=== PATIENT | male | born 1955 | race Caucasian/White ===

== ENCOUNTER 2019-07-04 20:42 | Emergency (ER) | payer SELFPAY ==
[2019-07-04 20:45] VITALS: BP 140/78; PULSE 103; RESP 18; TEMP 36.9; O2SAT 99
[2019-07-04 21:40] LABS: RBC Urine None Seen (0-5/HPF)
[2019-07-04 21:48] LABS: Bacteria Urine Moderate (10-30); Squamous Epithelial Cell Urine 0-1 /HPF (0-5/HPF); WBC Urine >100/HPF (0-5/HPF)
[2019-07-04 21:49] LABS: Culture Indicated Urine Specimen Cultured
--- NOTE | 2019-07-04 22:32 | ED_ITS ---
HPI - Male Genitourinary General Chief complaint: Urogenital-Male Stated complaint: thinks has a virus or something Time Seen by Provider: 07/04/19 23:47 Source: patient Mode of arrival: Ambulatory Limitations: no limitations History of Present Illness HPI Narrative: 63-year-old male comes to the emergency department with concern for infection in his urine. Patient states he is having frequency and dysuria. He did note some discharge which he states is sort of creamy. He states that no fevers. No abdominal pain, no flank pain, no nausea, vomiting, no diarrhea, constipation. Patient denies any other medical issues. Patient denies any surgeries. No allergies to medications. Patient states he had a bladder infection about a year ago and states he got antibiotics. He states he is sexually active. Related Data Previous Rx's Medication Instructions Recorded ciprofloxacin HCl 500 mg PO BID #14 tab 07/05/19 Allergies Allergy/AdvReac Type Severity Reaction Status Date / Time No Known Drug Allergies Allergy Verified 07/04/19 20:50 Review of Systems Review of Systems ROS Unobtainable: All systems reviewed & are unremarkable except as noted in HPI and below Patient History Social History Smoking Status: Never smoker Smoking Status: Never smoker alcohol intake frequency: 0-2 drinks per day Substance Use Type: does not use Exam Narrative Exam Narrative: GENERAL: Alert and oriented x three, well-nourished, well- appearing male in mild distress HEENT: Head normocephalic, atraumatic, EOMI, pupils reactive, face symmetric, moist mucous membranes NECK: Supple, full range of motion CARDIOVASCULAR: Regular rate and rhythm without murmurs, rubs or gallops. RESPIRATORY: Breath sounds equal bilaterally, no wheezes rales or rhonchi. ABDOMEN: Soft, nontender. Normoactive bowel sounds all 4 quadrants. No guarding or rebound, rigidity, no mass : No CVA tenderness EXTREMITIES: Normal range of motion, no clubbing or edema. Neurovascularly intact NEUROLOGICAL: Cranial nerves II through XII grossly intact. Moving all extremities SKIN: Warm, dry, no petechiae, no rashes or lesions. Initial Vital Signs Initial Vital Signs: Vital Signs Temperature 98.4 F 07/04/19 20:45 Pulse Rate 103 H 07/04/19 20:45 Respiratory Rate 18 07/04/19 20:45 Blood Pressure 140/78 07/04/19 20:45 Pulse Oximetry 99 07/04/19 20:45 Course Orders Ordered: ED Orders 07/05/19 00:07 Chlamydia Gonorrhea PCR -URINE Stat Discontinued Medications Ciprofloxacin (Cipro) 500 mg PO NOW ONE Stop: 07/05/19 02:07 Last Admin: 07/05/19 02:40 Dose: 500 mg [facility] Vital Signs Vital signs: Vital Signs - 8 hr 07/05/19 01:10 07/05/19 02:56 Temperature 98.2 F Pulse Rate 59 L 61 Respiratory Rate 18 14 Blood Pressure 122/74 Blood Pressure [Left Wrist] 122/75 Pulse Oximetry 98 99 MDM - Male Genitourinary Lab Data Attestation: I reviewed the patient's lab results. Labs: Lab Results 07/04/19 07/04/19 Range/Units 00:07 21:38 Urine RBC None seen (0-5/HPF) Urine WBC >100/hpf H (0-5/HPF) Ur Squamous Epith Cells 0-1 /hpf (0-5/HPF) Urine Bacteria Moderate (10-30) H (None) Ur Culture Indicated? Specimen cultured Ur Chlamydia DNA (PCR) Not detected N gonorrhoeae DNA (PCR) Not detected Urine Dip Bedside Urine Glucose Negative Bedside Urine Bilirubin - Negative Bedside Urine Ketone - Negative Urine Specific [place] 1.015 Bedside Urine Occult Blood - Negative Bedside Urine pH 8.0 Bedside Urine Protein + 30 Bedside Urine Urobilinogen +/- 1mg Bedside Urine Nitrite - Negative Bedside Urine Leukocytes ++ 125 Esterase MDM Narrative Medical decision making narrative: Urine GC is negative. Urine shows leuks with UTI type symptoms. Patient was started on Cipro b.i.d. and given 1st dose here. Patient does not show any signs of sepsis and lab work was deferred. Discharge Plan Departure Patient Disposition: Home Clinical Impression: Urinary tract infection Qualifiers: Urinary tract infection type: acute cystitis Discharge Date/Time: 07/05/19 02:59 Instructions: DI for Urinary Tract Infection (UTI) Activity Restrictions/Additional Instructions: Follow-up with primary care in the next week for recheck if you are not having resolution of your symptoms. Take antibiotics once daily until gone. Return to the ER for fevers greater 100.4 F, new or worsening abdominal pain, back or flank pain, persistent vomiting, inability to urinate, lightheadedness, testicular pain, passing out, black or bloody stools or other new or concerning symptoms. Prescriptions: New ciprofloxacin HCl 500 mg tablet 500 mg PO BID Qty: 14 RF: 0
[2019-07-05 01:10] VITALS: BP 122/75; PULSE 59; RESP 18; TEMP 36.8; O2SAT 98
[2019-07-05 01:32] LABS: Urine Chlamydia NOT DETECTED; Urine N gonorrhoeae NOT DETECTED
[2019-07-05] MEDS: CIPROFLOXACIN 500 MG TABLET PO (02:40)
[2019-07-05 02:56] VITALS: BP 122/74; PULSE 61; RESP 14; O2SAT 99
== END 2019-07-05 02:59 | disposition home or self-care (01) ==
PROVIDERS: Emergency Provider Emergency Medicine
DX: N30.00 Acute cystitis without hematuria (principal)
CPT/HCPCS: 81003; 81015; 87086; 87491; 87591; 99283

== ENCOUNTER → 2023-01-12 15:11 | Outpatient (CLI) | payer SELFPAY | PROVIDERS: Visit Provider Nurse Practitioner Family | DX: R35.0 Frequency of micturition (principal) | CPT/HCPCS: 87077; 87086; 87186 ==

== ENCOUNTER 2023-04-18 14:30 | Emergency (ER) | payer SELFPAY ==
[2023-04-18 14:57] VITALS: BP 169/79; PULSE 70; RESP 16; TEMP 36.9; O2SAT 99; BMI 21.5
--- NOTE | 2023-04-18 15:39 | ED_ITS ---
HPI - Wound/Laceration <Tato Garrido PA-C - Last Filed: 04/18/23 16:25> General Chief Complaint: Wound/Laceration Stated Complaint: lt finger infection Time Seen by Provider: 04/18/23 15:38 Source: patient Mode of arrival: Ambulatory History of Present Illness HPI narrative: 67-year-old male presents to the ED for a left 3rd finger infection. Patient states that he had a hangnail, which appears to now be infected. Patient states that his finger became acutely swollen, painful and red over the past 2 days. Patient denies numbness, tingling, weakness. Patient denies fever, chills, nausea, vomiting. Related Data Allergies Allergy/AdvReac Type Severity Reaction Status Date / Time No Known Drug Allergies Allergy Verified 04/18/23 15:02 Review of Systems <Tato Garrido PA-C - Last Filed: 04/18/23 16:25> Constitutional Constitutional: Denies chills, Denies fatigue, Denies fever(s), Denies frequent falls, Denies lethargy and Denies weakness Eyes Eyes: Denies change in vision, Denies eye discharge, Denies irritation and Denies loss of vision ENT Ears, Nose, Mouth, and Throat: Denies change in voice, Denies dizziness, Denies neck pain, Denies sore throat and Denies throat swelling Cardiovascular Cardiovascular: Denies chest pain, Denies irregular heart rhythm, Denies lightheadedness, Denies palpitations, Denies dyspnea, Denies dyspnea on exertion and Denies orthopnea Respiratory Respiratory: Denies cough, Denies dyspnea, Denies dyspnea on exertion and Denies wheezing Gastrointestinal Gastrointestinal: Denies abdominal pain, Denies change in bowel habits, Denies diarrhea, Denies nausea and Denies vomiting Musculoskeletal Musculoskeletal: Denies neck pain and Denies numbness Integumentary/Breasts Skin/Breast: Denies pruritus, Denies erythema, Denies rash and Denies wounds Comments: L 3rd finger swelling, pain, red Neurologic Neurologic: Denies behavioral changes, Denies confusion, Denies dizziness, Denies frequent falls, Denies loss of vision, Denies numbness and Denies weaknes s Psychiatric Psychiatric: Denies anxiety, Denies behavioral changes, Denies confusion, Denies depression, Denies homicidal ideation and Denies suicidal ideation Endocrine Endocrine: Denies fatigue, Denies flushing and Denies palpitations Hematologic/Lymphatic Hematologic/Lymphatic: Denies easy bruising Allergic/Immunologic Allergic/Immunologic: Denies urticaria, Denies throat swelling and Denies whee zing Patient History <Tato Garrido PA-C - Last Filed: 04/18/23 16:25> Social History Smoking Status: Never smoker Smoking Status: Never smoker alcohol intake frequency: 0-2 drinks per day Substance Use Type: does not use Exam <Tato Garrido PA-C - Last Filed: 04/18/23 16:25> Narrative Exam Narrative: Const General:?cooperative, healthy appearing and comfortable HENMT Head:?normal to inspection Ears:?hearing grossly normal bilaterally Nose:?external nose normal Face and sinus:?normal facial exam and sinuses nontender Mouth:?oral mucosae normal Throat:?posterior oropharynx normal Eyes General:?appearance normal, both eyes and all related structures Neck Neck:?normal visual inspection and no lymphadenopathy noted Resp Effort & Inspection:?normal respiratory effort Auscultation:?clear to auscultation bilaterally Cardio Rate:?regular rate Rhythm:?regular rhythm Integumentary Left 3rd finger tip appears swollen, erythematous, tender to palpation, fluctuant with pus. Appearance most consistent with a paronychia. There is full range of motion. Strength and sensation is intact. Patient is neurovascularly intact. Neuro General:?patient alert, patient awake and patient oriented x3 Initial Vital Signs Initial Vital Signs: Vital Signs Temperature 98.4 F 04/18/23 14:57 Pulse Rate 70 04/18/23 14:57 Respiratory Rate 16 04/18/23 14:57 Blood Pressure 169/79 H 04/18/23 14:57 Pulse Oximetry 99 04/18/23 14:57 Oxygen Delivery Method Room Air 04/18/23 14:57 <Sanford Younger DO - Last Filed: 04/18/23 17:13> Initial Vital Signs Initial Vital Signs: Vital Signs Temperature 98.4 F 04/18/23 14:57 Pulse Rate 70 04/18/23 14:57 Respiratory Rate 16 04/18/23 14:57 Blood Pressure 169/79 H 04/18/23 14:57 Pulse Oximetry 99 04/18/23 14:57 Oxygen Delivery Method Room Air 04/18/23 14:57 Procedures <Tato Garrido PA-C - Last Filed: 04/18/23 16:25> Abscess I/D I&D #1: Site: hand Side (if applicable): left Sedation/analgesia: none Local Anesthetic: lidocaine 1% Amount of anesthesia used (mL): 4 Technique: incised with #11 blade Amount of fluid expressed (mL): 1 Packing used?: none Course <Tato Garrido PA-C - Last Filed: 04/18/23 16:25> Orders Ordered: Discontinued Medications Bacitracin (Bacitracin Oint 0.9 Gm Pckt) 1 applic TOP NOW ONE Stop: 04/18/23 16:16 Last Admin: 04/18/23 16:18 Dose: 1 applic Documented By: KERVIN Lidocaine HCl (Lidocaine 1% (Pf) 5 Ml) 5 ml INJ NOW ONE Stop: 04/18/23 15:45 Last Admin: 04/18/23 15:50 Dose: 5 ml Documented By: KERVIN Vital Signs Vital signs: Vital Signs - 8 hr 04/18/23 14:57 04/18/23 16:29 Temperature 98.4 F Pulse Rate 70 60 Respiratory Rate 16 Blood Pressure 169/79 H 121/63 Pulse Oximetry 99 100 Oxygen Delivery Method Room Air Room Air <Sanford Younger DO - Last Filed: 04/18/23 17:13> Orders Ordered: Discontinued Medications Bacitracin (Bacitracin Oint 0.9 Gm Pckt) 1 applic TOP NOW ONE Stop: 04/18/23 16:16 Last Admin: 04/18/23 16:18 Dose: 1 applic Documented By: KERVIN Lidocaine HCl (Lidocaine 1% (Pf) 5 Ml) 5 ml INJ NOW ONE Stop: 04/18/23 15:45 Last Admin: 04/18/23 15:50 Dose: 5 ml Documented By: BS Vital Signs Vital signs: Vital Signs - 8 hr 04/18/23 14:57 04/18/23 16:29 Temperature 98.4 F Pulse Rate 70 60 Respiratory Rate 16 Blood Pressure 169/79 H 121/63 Pulse Oximetry 99 100 Oxygen Delivery Method Room Air Room Air MDM - Wound/Laceration <Tato Garrido PA-C - Last Filed: 04/18/23 16:25> MDM Narrative Medical decision making narrative: 67-year-old male presents to the ED for a left 3rd finger infection. Physical exam is most consistent with a paronychia from a hang nail. Paronychia was incised and drained. Bacitracin was applied and finger was bandaged. Recommend continued use of a triple antibiotic 3 times a day. Wound care and signs of worsening infection discussed with patient. ED return precautions discussed with patient. Patient verbalized understanding. Medical records reviewed: Yes Discharge Plan Departure Patient Disposition: Home Clinical Impression: Paronychia Instructions: DI for Paronychia Activity Restrictions/Additional Instructions: You were evaluated in the ED today for a finger infection. The infection was incised and drained, antibiotic applied and bandaged. Please continue to keep the finger clean and dry. Please apply a triple antibiotic ointment such as Neosporin that you can buy at the drug store 3 times a day and keep the injury bandaged. Do not keep her dressings on for any length of time. Return to the ED if you note signs of worsening infection such as worsening redness, pus, warmth, pain, swelling. Please follow-up with your PCP as soon as possible. Referrals: Miscellaneous,Doctor, MD [Primary Care Provider] - Stand Alone Forms: Patient Portal/API ED Sign-out <Sanford Younger DO - Last Filed: 04/18/23 17:13> Cosign ED Attending Coslorenzoature Attestation: Dr Younger Co-Sign Statement: I was available for consultation during this patient's emergency department visit. This chart is signed by myself for administrative purposes only. I did not have direct contact with this patient during this visit. They were seen independently by the APC.
[2023-04-18] MEDS: LIDOCAINE 1% (PF) 5 ML INJ (15:50)
[2023-04-18] MEDS: BACITRACIN OINT 0.9 GM PCKT 1 APPLIC TOP (16:18)
[2023-04-18 16:29] VITALS: BP 121/63; PULSE 60; O2SAT 100
== END 2023-04-18 16:41 | disposition home or self-care (01) ==
PROVIDERS: Emergency Provider Student in an Organized Health Care Education/Training Program
DX: L03.012 Cellulitis of left finger (principal)
CPT/HCPCS: 10060; 99282; 99283

== ENCOUNTER 2024-12-06 14:01 | Emergency (ER) | payer MEDICARE, SELFPAY ==
[2024-12-06] VITALS (7 sets, daily range): BP systolic 109–148; BP diastolic 59–66; PULSE 64–88; RESP 16; TEMP 36.4–37; O2SAT 95–97; BMI 21.2
--- NOTE | 2024-12-06 14:22 | DI.RAD.S_ITS ---
PROCEDURE: XR CHEST 2V INDICATIONS: productive cough TECHNIQUE: 2 views of the chest were acquired. COMPARISON: None. FINDINGS AND IMPRESSION: Focal mild airspace disease in the left lower lung, confirmed on lateral view at the costophrenic angle. No drainable effusions. Consider future imaging surveillance to assess for resolution. Normal heart size. Degenerative osseous findings. Dictated by: Oseas Vasquez M.D. on 12/06/2024 at 13:49 Approved by: Oseas Vasquez M.D. on 12/06/2024 at 13:50
--- NOTE | 2024-12-06 17:31 | ED.URI ---
HPI - URI/Sore Throat General Chief Complaint: Upper Respiratory Symptoms Stated Complaint: cold that won't go away Time Seen by Provider: 12/06/24 17:09 Source: patient Mode of arrival: Ambulatory History of Present Illness HPI Narrative: 69-year-old male with complaint of a cold that just will not go away. He states it has been 2 weeks since onset. Had several friends who had symptoms several of them have improved 1 did not improved was seen yesterday and had antibiotics prescribed. He states he was not getting any worse but he was not really getting any better. He felt warm yesterday. He was has a little bit of persistent nasal congestion, notes he has had some clear whitish mucus with cough. He states his cough is slightly improved but still persistent. Denies any chest pain or pressure no shortness of breath, no syncope. He notes a lot of mucus drainage. Denies any nausea or vomiting, no other GI or urinary symptoms. No new swelling in extremities. Patient states no daily medications, no prior surgeries. No known drug allergies. No tobacco, occasional alcohol, no recreational drugs. Related Data Previous Rx's ?Medication ?Instructions ?Recorded amoxicillin 875 mg-potassium 1 tab PO BID 10 days #20 tabs 12/06/24 clavulanate 125 mg tablet Allergies Allergy/AdvReac Type Severity Reaction Status Date / Time No Known Drug Allergies Allergy Verified 12/06/24 14:11 Review of Systems Review of Systems ROS Unobtainable: All systems reviewed & are unremarkable except as noted in HPI and below Patient History Social History Smoking Status: Never smoker Smoking Status: Never smoker alcohol intake frequency: 0-2 drinks per day Exam Narrative Exam Narrative: GEN: well nourished, well appearing male, alert and oriented x [default value], patient appears to be in my distress. HEENT: Atraumatic, pupils are equal round reactive to light, extraocular movements are intact, nares very mild congestion, there is no conjunctival pallor. Throat is clear without any exudates, erythema, tonsillar enlargement or uvular deviation HEART: Regular rate and rhythm without murmur, clicks, rubs. No edema bilateral lower extremities. LUNGS:Lungs clear to auscultation, no wheezes, rales, crackles, chest moves symmetrically, no tachypnea accessory muscle use. ABD:bowel sounds normal, soft, non-tender, no guarding, rebound, rigidity, no masses noted, no hepatosplenomegaly MSCL: Non-tender, no muscle atrophy, muscles strength 5/5 upper and lower extremities, full range of motion, normal gait NEURO:CN 2-12 intact, sensation normal. Initial Vital Signs Initial Vital Signs: Vital Signs Temperature 97.6 F 12/06/24 14:11 Pulse Rate 88 12/06/24 14:11 Respiratory Rate 16 12/06/24 14:11 Blood Pressure 148/64 H 12/06/24 14:11 Pulse Oximetry 96 12/06/24 14:11 Oxygen Delivery Method Room Air 12/06/24 14:11 Course Orders Ordered: ED Orders 12/06/24 14:22 Chest [XR chest 2V] Stat Vital Signs Vital signs: Vital Signs - 8 hr 12/06/24 14:11 12/06/24 15:33 12/06/24 16:00 Temperature 97.6 F Pulse Rate 88 64 Respiratory Rate 16 Blood Pressure 148/64 H 109/66 Pulse Oximetry 96 97 Oxygen Delivery Method Room Air 12/06/24 16:00 12/06/24 16:30 12/06/24 16:30 Temperature Pulse Rate 65 70 Respiratory Rate Blood Pressure 123/59 L Pulse Oximetry 96 95 Oxygen Delivery Method 12/06/24 17:00 12/06/24 17:00 12/06/24 17:30 Temperature Pulse Rate 71 72 Respiratory Rate Blood Pressure 114/62 Pulse Oximetry 97 97 Oxygen Delivery Method 12/06/24 17:52 Temperature 98.6 F Pulse Rate Respiratory Rate Blood Pressure Pulse Oximetry Oxygen Delivery Method MDM - URI/Sore Throat MDM Narrative Medical decision making narrative: Chest x-ray shows focal mild airspace disease in left lower lung confirmed on lateral view with the costophrenic angle, no drainable effusion consider future imaging surveillance to assess for resolution. Normal heart size. Degenerative osseous findings. Patient notes had recent upper respiratory viral infection but has been lasting about 2 weeks has been slowly improving but slower than patient would have expected. Chest x-ray shows possible focal consolidation we will treat for pneumonia. Discharge Plan Departure Patient Disposition: Home Clinical Impression: Pneumonia Activity Restrictions/Additional Instructions: Your x-ray today shows a small area of what appears to be pneumonia on the left side. You have been prescribed an oral antibiotic. You should follow up and have repeat imaging of your chest in the next 6-8 weeks to make sure that that area has a resolved in his and a mass or other change. Take oral antibiotics until completed. Prescription sent to [facility] in [place]. Please return for fevers, new or worsening chest pain, shortness of breath, lightheadedness or passing out, new swelling of your extremities or other new or concerning changes. Prescriptions: New amoxicillin-pot clavulanate 875-125 mg tablet 1 tab PO BID 10 Days Qty: 20 0RF Stand Alone Forms: Patient Portal/API
== END 2024-12-06 17:52 | disposition home or self-care (01) ==
PROVIDERS: Emergency Provider Emergency Medicine
DX: J18.9 Pneumonia, unspecified organism (principal)
CPT/HCPCS: 71046; 99281; 99283